=== PATIENT | female | born 1990 | race Hispanic/Latino ===

== ENCOUNTER 2023-11-07 13:01 | Emergency (ER) | payer OTHER, SELFPAY ==
[2023-11-07 13:05] VITALS: BP 130/78
--- NOTE | 2023-11-07 13:27 | ED.GENMED ---
History of Present Illness
General
Chief Complaint: Eye Problems
Time Seen by Provider: 11/07/23 13:27
Travel History
Have you had any contact with someone who has COVID-19?: No
Do you have any symptoms of coronavirus? Fever > 100 degrees, chills, cough, shortness of breath, sore throat, loss of taste or smell, muscle aches, or headache?: No
History of Present Illness
History of Present Illness:
HPI: The patient presents due to new medial right eye redness. She feels it has been getting worse and it started 4 days ago. She has had a mild headache and states she has had a negative COVID test recently. She has also had a cough for the past
3 weeks which is getting better with cough medicine. She also reports fatigue/weakness. She spoke to her sister who thought maybe her blood pressure could be elevated.
EXAM:
GENERAL: Well appearing in no distress, she has a prominent cough
HEENT: Moist oral mucosa, there is a subconjunctival hemorrhage to the medial aspect of the right eye
CARDIOVASCULAR: No murmurs, normal heart rate and rhythm, No chest wall tenderness, wet sounding cough
PULMONARY: No respiratory distress, breath sounds are clear and equal
ABDOMEN: Soft with no peritoneal signs, no tenderness
NEUROLOGIC: Excellent strength all extremities, no coordination deficits
PSYCHIATRIC: Appropriate mental status, normal insight and judgement
EXTREMITIES: Nontender, no edema, moves all extremities equally
SKIN: No rash, no lesions
ED COURSE:
1:30 PM: I initially evaluated patient
NUMBER AND COMPLEXITY OF PROBLEMS ADDRESSED AT THE ENCOUNTER
� Chronic conditions affecting care: Has had gallstones and kidney stones
� Acute Exacerbation and/or Progression of Chronic Illness: This is an acute problem
� Differential Diagnosis includes: Viral syndrome, subconjunctival hemorrhage, coagulopathy
AMOUNT AND/OR COMPLEXITY OF DATA TO BE REVIEWED AND ANALYZED
� I performed an independent evaluation of and my interpretation is:
EKG:
CT:
X-rays:
Laboratory Studies: The white blood cell count is normal, hemoglobin is normal, chemistries and coagulation are unremarkable
Other:
� Review of other/old records: I reviewed old records�patient had a cholecystectomy for calculous cholecystitis in 2020 associated with abnormal LFTs
� Clinical information was obtained by an independent historian:
� Prescriptions/Medications Considered but not given:
� Further testing considered but not performed:
RISK OF COMPLICATIONS AND/OR MORBIDITY OR MORTALITY OF PATIENT MANAGEMENT
� Social determinants of health affecting care: Lives at home
� Discussion with other providers:
� Escalation of care including admission/observation vs risk of discharge considered: Given the associated fatigue, will obtain labs and will give a liter of fluid and reassess. Initial vital signs are relatively unremarkable.
Lab work is unremarkable. Overall, the patient feels somewhat improved after fluids were given as of 3:55 PM. I have given her the contact information for local claims supervisor if needed.
Past History
Past History
ED Past Medical History: None
ED Past Surgical History: and Urological
Social History
Tobacco: Non-smoker
Alcohol: None
Drug: None
Personal:
Living: with family
Employment: Employed
Family History
Family History: Other (Noncontributory)
Phy Exam
Physical Exam
Physical Exam:
See HPI
Course
Orders/Labs/Results
Orders:
Orders
11/07/23 13:40
0.9% Sodium Chloride 1000 ml [Nss] 1,000 ml IV BOLUS
11/07/23 13:54
Complete Blood Count/With Diff Urgent
Comprehensive Metabolic Panel Urgent
Prothrombin Time Urgent
Abnormal Lab Results
11/07/23
13:54
Hct 36.0 L %
(37.0-47.0)
Eosinophils % 7.0 H %
(0-6)
11/07/23 13:54
11/07/23 13:54
Vital Signs
Initial and Last Documented VS:
Initial Vital Signs
Temp Pulse Resp BP Pulse Ox
98.2 F 72 18 130/78 96
11/07/23 13:05 11/07/23 13:05 11/07/23 13:05 11/07/23 13:05 11/07/23 13:05
Last Documented Vital Signs
Temp Pulse Resp BP Pulse Ox
98.2 F 72 18 130/78 96
11/07/23 13:05 11/07/23 13:05 11/07/23 13:05 11/07/23 14:50 11/07/23 13:05
*Critical Care Note
Total Time (30-74mins, 75-104mins- exclusive of procedures): Not Applicable
ED Attending Note
-
Portions of this chart may have been created with voice recognition software.� Occasional wrong word or��sound alike� substitutions may have occurred due to the inherent limitations of voice recognition software.
Discharge Plan
Departure
Prescriptions:
No Action
polyethylene glycol 3350 17 GRAMS powder in packet
17 grams PO DAILYPRN PRN (Reason: constipation) Qty: 1 0RF
acetaminophen [Tylenol Extra Strength] 500 MG tablet
1,000 mg PO Q6HPRN PRN (Reason: mild pain) Qty: 1 0RF
ibuprofen 200 MG tablet
400 mg PO Q6HPRN PRN (Reason: moderate pain) Qty: 1 0RF
oxycodone 5 MG tablet
5 mg PO Q4HPRN PRN (Reason: breakthrough/severe pain) Qty: 10 0RF
Referrals:
Hina Siegel MD [Family Provider] -
Interventions
Interventions:
*Risk Screen - Suicide Last Done: 11/07/23 13:48
*General Assessment Last Done: 11/07/23 13:48
*Neglect/Abuse Screening Last Done: 11/07/23 13:48
ED- Fall Risk Assessment Last Done: 11/07/23 14:00
*ED COVID-19 Vaccine History Last Done: 11/07/23 13:48
*Nursing Disposition Last Done: 11/07/23 14:50
[2023-11-07 13:48] VITALS: BMI 26.2
[2023-11-07] MEDS: NSS 1000 IV (13:56)
[2023-11-07 14:03] LABS: % Basophils 0.6 % (0-2); % Immature Granulocytes 0.1 % (0-0.5); % Lymphocytes 34.2 % (20.5-51.1); % Monocytes 6.3 % (1.7-9.3); % Neutrophils 51.8 % (42.2-75.2); Absolute Eosinophils 0.5 10^3/uL (0-0.7); Absolute Lymphocytes 2.4 10^3/uL (1.2-3.4); Absolute Monocytes 0.4 10^3/uL (0.1-0.6); Absolute Neutrophils 3.6 10^3/uL (1.4-6.5); Hemoglobin 12.7 g/dL (12.0-16.0); Mean Corp Hgb Conc. 35.3 g/dL (33.0-37.0); Mean Corpuscular Hgb 30.1 pg (27.0-31.0); Mean Corpuscular Volume 85.3 fL (81.0-99.0); Mean Platelet Volume 9.3 fL (7.4-10.4); Nucleated Red Blood Cells % 0 %; Platelet Count 345 10^3/uL (130-400); Red Blood Cell Count 4.22 10^6/uL (4.20-5.40); Red Cell Dist. Width 12.4 % (11.5-14.5)
[2023-11-07 14:14] LABS: INR 0.95; PT 12.9 Sec (11.4-14.6)
[2023-11-07 14:41] LABS: ALT (SGPT) 17 U/L (0-35); AST (SGOT) 25 U/L (14-36); Albumin 4.1 g/dl (3.5-5.0); Alkaline Phosphatase 52 U/L (38-126); Blood Urea Nitrogen 12 mg/dl (7-17); Calcium 9.7 mg/dl (8.4-10.2); Carbon Dioxide 22 mmol/L (22-30); Chloride 102 mmol/L (98-107); Estimated Creatinine Clearance 113 ml/min; Glucose 97 mg/dl (70-99); Sodium 137 mmol/L (135-145); Total Bilirubin 0.6 mg/dl (0.2-1.3); Total Protein 6.9 g/dl (6.3-8.2); eGFR > 60.00
[2023-11-07 14:50] VITALS: BP 130/78
[2023-11-07 16:03] VITALS: BP 130/78
== END 2023-11-07 16:03 | disposition home or self-care (01) ==
LOC: EMR 13:01
PROVIDERS: EMERGENCY PHYSICIAN Emergency Medicine; FAMILY PHYSICIAN Internal Medicine
DX: R53.83 Other fatigue (principal); H57.89 Other specified disorders of eye and adnexa; R05.9 Cough, unspecified; R53.1 Weakness; R51.9 Headache, unspecified
CPT/HCPCS: 99284; 96360; 80053; 85025; 85610

== ENCOUNTER → 2025-02-04 11:27 | Outpatient (REF) | payer OTHER, SELFPAY ==
[2025-02-04 12:18] LABS: % Basophils 0.2 % (0-2); % Eosinophils 1.1 % (0-6); % Immature Granulocytes 0.2 % (0-0.5); % Lymphocytes 35.7 % (20.5-51.1); % Monocytes 5.9 % (1.7-9.3); % Neutrophils 56.9 % (42.2-75.2); Absolute Eosinophils 0.1 10^3/uL (0-0.7); Absolute Lymphocytes 1.9 10^3/uL (1.2-3.4); Absolute Monocytes 0.3 10^3/uL (0.1-0.6); Absolute Neutrophils 3.1 10^3/uL (1.4-6.5); Hematocrit 38.9 % (37.0-47.0); Hemoglobin 13.2 g/dL (12.0-16.0); Mean Corp Hgb Conc. 33.9 g/dL (33.0-37.0); Mean Corpuscular Hgb 29.5 pg (27.0-31.0); Mean Platelet Volume 9.6 fL (7.4-10.4); Nucleated Red Blood Cells % 0 %; Platelet Count 327 10^3/uL (130-400); Red Blood Cell Count 4.47 10^6/uL (4.20-5.40); Red Cell Dist. Width 12.9 % (11.5-14.5); White Blood Cell Count 5.4 10^3/uL (4.8-10.8)
[2025-02-04 13:14] LABS: ALT (SGPT) 22 U/L (0-35); AST (SGOT) 22 U/L (14-36); Albumin 4.5 g/dl (3.5-5.0); Alkaline Phosphatase 55 U/L (38-126); Blood Urea Nitrogen 11 mg/dl (7-17); Calcium 9.8 mg/dl (8.4-10.2); Carbon Dioxide 25 mmol/L (22-30); Chloride 104 mmol/L (98-107); Glucose 91 mg/dl (70-99); Potassium 4.4 mmol/L (3.5-5.1); Sodium 139 mmol/L (135-145); Total Bilirubin 0.5 mg/dl (0.2-1.3); Total Protein 7.2 g/dl (6.3-8.2); eGFR > 60.00
[2025-02-04 13:40] LABS: TSH Reflex To Free T4 1.47 uIU/ml (0.47-4.68)
== END ==
LOC: CLINIC 11:27
PROVIDERS: ATTENDING PHYSICIAN Nurse Practitioner Adult Health
DX: R21 Rash and other nonspecific skin eruption (principal); Z00.00 Encounter for general adult medical examination without abnormal findings
CPT/HCPCS: 80053; 84443; 85025

== ENCOUNTER 2025-04-23 14:31 | Emergency (ER) | payer OTHER, SELFPAY ==
[2025-04-23 14:32] VITALS: BP 134/95
[2025-04-23 14:57] LABS: Hematocrit 38.9 % (37.0-47.0); Hemoglobin 13.4 g/dL (12.0-16.0); Mean Corp Hgb Conc. 34.4 g/dL (33.0-37.0); Mean Corpuscular Volume 86.3 fL (81.0-99.0); Nucleated Red Blood Cells % 0 %; Platelet Count 342 10^3/uL (130-400); Red Cell Dist. Width 12.4 % (11.5-14.5)
[2025-04-23 15:08] LABS: HCG, Serum Qualitative Screen Negative
[2025-04-23 15:11] LABS: ALT (SGPT) 19 U/L (0-35); AST (SGOT) 26 U/L (14-36); Albumin 5.0 g/dl (3.5-5.0); Alkaline Phosphatase 61 U/L (38-126); Blood Urea Nitrogen 8 mg/dl (7-17); Calcium 9.9 mg/dl (8.4-10.2); Carbon Dioxide 25 mmol/L (22-30); Chloride 106 mmol/L (98-107); Glucose 92 mg/dl (70-99); Potassium 3.7 mmol/L (3.5-5.1); Sodium 139 mmol/L (135-145); Total Protein 8.2 g/dl (6.3-8.2); eGFR > 60.00
--- NOTE | 2025-04-23 17:32 | ED.GENMED ---
History of Present Illness
General
Chief Complaint: Swelling
Source: patient
Exam Limitations: none
Time Seen by Provider: 04/23/25 16:56
Nursing documentation reviewed up to this point in time: agreed with
History of Present Illness
History of Present Illness:
Patient is a 34-year-old female who presents to the emergency department for evaluation of right sided neck pain and swelling. Symptoms have been ongoing for the past 5 weeks. She states she initially noted a feeling that she had some clot in her
throat and was seen by her primary care provider who suspected postnasal drip and started her on Flonase.
Patient reports that over the past month symptoms have gradually progressed and now she notices visible swelling to the right side of her neck. 2 days ago she started with pain in her neck, made worse with swallowing. She also feels that she is
having difficulty taking a deep breath. In addition�she is having intermittent sharp, stabbing pain in her right ear.
Patient denies any fever or chills. She has had no cough or other URI symptoms. She denies any sore throat. No recent dental pain. No chest pain.
No recent falls or trauma.
Past History
Past History
ED Past Medical History: None
ED Past Surgical History: and Urological
Social History
Tobacco: Non-smoker
Alcohol: None
Drug: None
Personal:
Living: with family
Employment: Employed
Family History
Family History: Other (Noncontributory)
Review of Systems
Review of Systems
Allergies reviewed?: Yes
All Other Systems: ROS reviewed and negative except as documented in HPI and ROS
Phy Exam
Physical Exam
Physical Exam:
Vitals: Hypertensive, otherwise vital signs stable. Afebrile
General: Patient is well appearing, no acute distress. Nontoxic appearing
Skin: Warm and dry, no rashes or lesions
Head: Normocephalic, atraumatic
Eyes: Sclera nonicteric. EOMs intact. No nystagmus.
Ears: Right ear canal is widely patent with normal tympanic membrane and normal landmarks. No
mastoid tenderness.
Throat: Mild pharyngeal erythema. No tonsillar edema or exudates. Uvula midline. No PERSONNEL SUPERVISOR. No trismus or drooling. Protecting airway
Neck: Asymmetric swelling to right neck/submandibular space. Tenderness to right submandibular area. No overlying erythema or streaking. No cervical spine tenderness or meningismus.
Cardiac: Regular rate and rhythm, no murmurs.
Pulm: Normal respiratory effort, no wheezes, rales, rhonchi heard on exam
.
Abdomen: No abdominal tenderness.
Extremities: No evidence of cyanosis or edema
Neuro: AAOx3. Grossly intact.
Psychiatric: Normal affect.
Course
Orders/Labs/Results
Orders:
Orders
04/23/25 14:37
Test Result ONCE
04/23/25 14:42
Complete Blood Count/With Diff Urgent
Comprehensive Metabolic Panel Urgent
HCG, Serum Qualitative Screen Urgent
Monotest Urgent
Comment: ADD ON
04/23/25 17:[address] [CT Neck With Iv Contrast] Urgent
Comment:
Reason For Exam: Right sided neck pain/swelling; dysphagia
Ketorolac [Toradol] 15 mg IV NOW STA
CR Chest - 2 Views Urgent
Comment:
Reason For Exam: SOB
04/23/25 21:12
Add On- LAB Urgent
Tests Added?: Monospot
04/23/25 21:33
Dexamethasone Sod Phosphate [Decadron] 10 mg IV NOW STA
04/23/25 21:43
Rapid Strep Group A Urgent
SAGAR Source: Throat/Pharynx
Specimen Description:
Date Specimen was Collected: 04/23/25
Time Specimen was Collected: 21:18
Throat Culture [Throat Culture, Comprehensive] Urgent
SAGAR Source: Throat/Pharynx
Specimen Description:
Date Specimen was Collected: 04/23/25
Time Specimen was Collected: 21:18
04/23/25 14:42
04/23/25 14:42
Vital Signs
Initial and Last Documented VS:
Initial Vital Signs
Temp Pulse Resp BP Pulse Ox
98.3 F 77 18 134/95 99
04/23/25 14:32 04/23/25 14:32 04/23/25 14:32 04/23/25 14:32 04/23/25 14:32
Last Documented Vital Signs
Temp Pulse Resp BP Pulse Ox
98.3 F 60 14 116/84 99
04/23/25 14:32 04/23/25 21:43 04/23/25 21:43 04/23/25 21:43 04/23/25 21:43
MDM/Problems Addressed
Differential Diagnosis Includes:
Not limited to: Lymphadenopathy, retropharyngeal abscess, sialoadenitis, neck abscess, parotitis, peritonsillar abscess, etc.
MDM/Problems Addressed:
34 year-old female presenting with approximately one month of minor throat irritation now with worsening swelling and tenderness of right neck. No associated fever, dysphasia, shortness of breath. No other viral URI symptoms. Patient treated with
Flonase by PCP for suspected postnasal drip without improvement. Vitals and physical exam as above. Patient overall well and nontoxic appearing. She does have some asymmetrical swelling in the right submandibular space without any erythema or
warmth. Posterior phyarynx mildly erythematous without any tonsillar edema or exudates. Uvula is midline with no evidence of PERSONNEL SUPERVISOR. Patient is handling oral secretions and has a patent airway. No trismus or drooling.
Differential broad including lymphadenopathy, viral illness, parotitis, sialadenitis, abscess, etc. ED plan: labs, CT scan neck with IV contrast. Will give toradol for pain.
Update: labs reviewed. No clinically significant abnormalities. CT neck reveals cervical lymphadenopathy and bilaterally enlarged tonsils with calcified tonsiliths. I had a lengthy discussion with patient utilizing second steward. Sensation in throat
possibly secondary to tonsilliths however non-visualized on exam and therefore unable to attempt removal. Swelling noted to neck suspected from cervical adenopathy.
Will add on rapid strep test and mono test however feel this is less likely.
Ultimately feel stable for discharge home. She is stable and in no distress. No current evidence of bacterial infection today. Do not feel antibiotics indicated. Discussed importance of very close follow outpatient w/ ENT to ensure lymph nodes
resolve as further imaging may be required. Strict return precautions discussed.
Chronic conditions affecting care:
N/A
Acute Exacerbation and/or Progression of Chronic Illness:
N/A
*Radiology
Radiology exam reviewed: radiology read reviewed
*Pulse Oximetry
SaO2: 99
Oxygen Mode of Delivery: Room air
Patient hypoxic: no
*EKG
Interpreted by ED Provider?: NA
*Hydraulic And Plumbing Installer Interpretation
Rate: Hydraulic And Plumbing Installer- N/A
*Critical Care Note
Total Time (30-74mins, 75-104mins- exclusive of procedures): Not Applicable
ED Attending Note
-
Portions of this chart may have been created with voice recognition software.� Occasional wrong word or��sound alike� substitutions may have occurred due to the inherent limitations of voice recognition software.
Discharge Plan
Departure
Patient Disposition: Home (Routine Discharge)
Date of Disposition: 04/23/25
Time of Disposition: 21:34
Patient with high blood pressure during this ER visit?: No
Discharge Problem:
Lymphadenopathy of head and neck, Tonsillolith
Instructions: Swollen lymph nodes in adults, BLOOD PRESSURE
Prescriptions:
No Action
polyethylene glycol 3350 17 GRAMS powder in packet
17 grams PO DAILYPRN PRN (Reason: constipation) Qty: 1 0RF
acetaminophen [Tylenol Extra Strength] 500 MG tablet
1,000 mg PO Q6HPRN PRN (Reason: mild pain) Qty: 1 0RF
ibuprofen 200 MG tablet
400 mg PO Q6HPRN PRN (Reason: moderate pain) Qty: 1 0RF
oxycodone 5 MG tablet
5 mg PO Q4HPRN PRN (Reason: breakthrough/severe pain) Qty: 10 0RF
Referrals:
Adan Thompson MD [Active, ENT] - Next open appointment
UNKNOWN - PT DOES,NOT KNOW [Family Provider]
Activity Restrictions/Additional Instructions:
REGRESE A URGENCIAS SI PRESENTA FIEBRE, ESCALOFOROS, EMPEORAMIENTO DE LA HINCHAZ�N DEL JEFFY, DIFICULTAD PARA RESPIRAR, TRAGAR, HABLAR, ENROJECIMIENTO DEL JEFFY, EMPEORAMIENTO DE LOS S�NTOMAS ACTUALES O CUALQUIER OTRA INQUIETUD.
- Paulie ya se mencion�, mani an�lisis de laboratorio no mostraron anomal�as agudas. Leo tomograf�a computarizada mostr� ganglios linf�ticos cervicales agrandados, as� paulie am�gdalas agrandadas con posibles c�lculos amigdalinos.
- Es muy importante que realice un seguimiento estrecho con leo m�dico de cabecera y otorrinolaring�logo para keith evaluaci�n adicional y asegurar la resoluci�n de mani ganglios linf�ticos. Siren podr�a requerir m�s pruebas de imagen.
- Me pondr� en contacto con usted si leo prueba de estreptococos o monotest da positivo.
- Es importante que se mantenga vera hidratado. Puede jacobo Motrin seg�n sea necesario para el dolor.
Vigile mani s�ntomas muy de cerca y regrese a urgencias si presenta cualquier empeoramiento rhoda, nuevos s�ntomas o cualquier otra inquietud.
Interventions
Interventions:
*Risk Screen - Suicide Last Done: 04/23/25 14:32
*General Assessment Last Done: 04/23/25 17:41
*Neglect/Abuse Screening Last Done: 04/23/25 14:32
*ED- Fall Risk Assessment Last Done: 04/23/25 17:41
*ED COVID-19 Vaccine History Last Done: 04/23/25 17:41
*Nursing Disposition Last Done: 04/23/25 22:04
ED- Cardiac Assessment Last Done: 04/23/25 17:41
ED- Pulmonary Assessment Last Done: 04/23/25 17:41
ED-Skin Assessment Last Done: 04/23/25 17:41
Discharge Date and Time
Discharge Date/Time: 04/23/25 22:04
Print Language: DOMINICAN
[2025-04-23] MEDS: TORADOL 15 MG IV (17:40)
[2025-04-23 17:45] VITALS: BP 115/87
[2025-04-23] MEDS: DECADRON 10 MG IV (21:40)
[2025-04-23 21:43] VITALS: BP 116/84
== END 2025-04-23 22:04 | disposition home or self-care (01) ==
LOC: EMR 14:31
PROVIDERS: Student in an Organized Health Care Education/Training Program; EMERGENCY PHYSICIAN Emergency Medicine
DX: R59.0 Localized enlarged lymph nodes (principal); J35.8 Other chronic diseases of tonsils and adenoids
CPT/HCPCS: 99284; 96374; 96375; 70491; 71046; 80053; 84703; 85025; 86308; 87070; 87880; Q9967

== ENCOUNTER → 2025-05-23 11:42 | Outpatient (REF) | payer OTHER, SELFPAY ==
[2025-05-23 12:36] LABS: Hematocrit 39.5 % (37.0-47.0); Hemoglobin 13.3 g/dL (12.0-16.0); Mean Corp Hgb Conc. 33.7 g/dL (33.0-37.0); Mean Corpuscular Volume 88.2 fL (81.0-99.0); Nucleated Red Blood Cells % 0 %; Platelet Count 364 10^3/uL (130-400); Red Cell Dist. Width 12.4 % (11.5-14.5)
[2025-05-23 13:32] LABS: Glycohemoglobin (HgbA1c) 5.3 % (4.0-5.6)
[2025-05-23 13:55] LABS: C-Reactive Protein < 5.00 mg/L (0.0-10.00)
[2025-05-23 14:28] LABS: ALT (SGPT) 18 U/L (0-35); AST (SGOT) 21 U/L (14-36); Albumin 4.8 g/dl (3.5-5.0); Alkaline Phosphatase 59 U/L (38-126); Blood Urea Nitrogen 10 mg/dl (7-17); Calcium 9.5 mg/dl (8.4-10.2); Carbon Dioxide 26 mmol/L (22-30); Chloride 105 mmol/L (98-107); Glucose 100 mg/dl (70-99); HDL Cholesterol 63 mg/dl; LDL Cholesterol, Calculated 124 mg/dl; Potassium 4.3 mmol/L (3.5-5.1); Sodium 140 mmol/L (135-145); Total Protein 7.7 g/dl (6.3-8.2); Very Low Density Lipoprotein 12 mg/dl (0-30); eGFR > 60.00
== END ==
LOC: CLINIC 11:42
PROVIDERS: ATTENDING PHYSICIAN Family Medicine
DX: R59.1 Generalized enlarged lymph nodes (principal); M54.30 Sciatica, unspecified side
CPT/HCPCS: 36415; 80053; 80061; 83036; 84443; 85025; 85652; 86038; 86140; 86480; 87389